=== PATIENT | male | born 1940 | race Caucasian/White ===

== ENCOUNTER 2019-12-10 14:01 | Emergency (ER) | payer BC, OTHER ==
[~2019-12-10] VITALS: Ht 177.8 cm; Wt 88.0 kg
--- NOTE | 2019-12-10 14:10 | NUR ---
BIB ra 79 YEAR OLD MALE c/o near syncopal episode at home. ALERT AND OREINTED X3, BREATHING EVEN AND UNLABORED WITH NO DISTRESS NOTED. SKIN INTACT. WAITING TO BE SEEN BY
[2019-12-10] MEDS ORDERED: ONDANSETRON HCL/PF 4 MG/2 ML VIAL ONE (14:13)
[2019-12-10] MEDS: IV NS 0.9% 500 ML BAG IV ONE (14:15)
[2019-12-10] MEDS: ONDANSETRON HCL/PF 4 MG/2 ML VIAL IVP ONE (14:16)
[2019-12-10 14:26] LABS: BASOPHILS # (AUTO) 0.1 /CMM (0.0-0.2); BASOPHILS % (AUTO) 0.7 % (0.0-2.0); EOSINOPHILS % (AUTO) 0.8 % (0.0-6.0); HEMATOCRIT 37 % (39-51); HEMOGLOBIN 12.5 g/dL (13.5-17.5); LYMPHOCYTES # (AUTO) 3.1 /CMM (0.8-4.8); LYMPHOCYTES % (AUTO) 33.2 % (20.0-44.0); MEAN CORPUSCULAR HGB CONC 34 g/dl (31.0-36.0); MEAN CORPUSCULAR VOLUME 97 fL (80-96); MONOCYTES % (AUTO) 10.3 % (2.0-12.0); NEUTROPHILS # (AUTO) 5.1 /CMM (1.8-8.9); PLATELET COUNT (AUTO) 244 /CMM (150-450); RED BLOOD CELL COUNT(AUTO) 3.83 MIL/uL (4.5-6.0); WHITE BLOOD COUNT (AUTO) 9.3 K/uL (4.3-11.0)
[2019-12-10 14:34] LABS: CALCIUM, SERUM 9.2 mg/dL (8.5-10.1); CARBON DIOXIDE 16 mmol/L (21-32); CHLORIDE 102 mmol/L (98-107); CREATININE 1.6 mg/dL (0.6-1.3); GLUCOSE 123 mg/dL (74-106); POTASSIUM 3.3 mmol/L (3.5-5.1); SODIUM SERUM 140 mmol/L (136-145); UREA NITROGEN, BLOOD 44 mg/dL (7-18)
[2019-12-10 14:39] LABS: ALANINE AMINOTRANSFERASE 16 U/L (12-78); ALBUMIN 3.3 g/dL (3.4-5.0); ALKALINE PHOSPHATASE 36 U/L (46-116); ASPARTATE AMINOTRANSFERASE 17 U/L (15-37); BILIRUBIN,DIRECT 0.1 mg/dL (0.0-0.2); BILIRUBIN,TOTAL 0.6 mg/dL (0.2-1.0); TOTAL PROTEIN, SERUM 6.2 g/dL (6.4-8.2)
[2019-12-10] MEDS ORDERED: SIMV-49 PO (14:39)
[2019-12-10] MEDS ORDERED: LISI40TA4 PO (14:39)
[2019-12-10] MEDS ORDERED: AMLO5TAB9 PO (14:39)
[2019-12-10] MEDS ORDERED: METF-440 PO (14:39)
[2019-12-10] MEDS ORDERED: PIOG45TA5 PO (14:39)
[2019-12-10] MEDS ORDERED: HYDR25TA4 PO (14:39)
--- NOTE | 2019-12-10 15:10 | NUR ---
GOT BED 109
--- NOTE | 2019-12-10 16:21 | NUR ---
PT REMAINS STABLE WITH NO DISTRESS WILL CONTINUE TO MONITOR
--- NOTE | 2019-12-10 16:27 | NUR ---
[employer]ING [employer] TE[employer] FARZANEH [phone] CALLED. PENDING TRANSFER INFORMATION
--- NOTE | 2019-12-10 18:17 | NUR ---
DINNER AT BEDSIDE
--- NOTE | 2019-12-10 19:00 | NUR ---
PADMINI GUAMAN [phone]
--- NOTE | 2019-12-10 19:11 | NUR ---
CALLED ROWENA BACK AND CANCELLED
--- NOTE | 2019-12-10 19:14 | NUR ---
STILL WAITING FOR PT TOGO TO [facility]. ASKED MD TO START THE PROCESS OF HAVING THE PT ADMITTED SINCE IT HAS BEEN NEARLY [address] HILL INFORMED THAT HE HAS SPOKEN WITH TWO DIFFERENT DOCTORS AT [facility], AND THAT THIS PT WILL IN FACT GO TO [facility] AND IT DOES NOT MATTER HOW LONG IT TAKES. PT HAS BEEN PRESENTED. THEREFORE WE WILL WAIT FOR TRANSPORT
--- NOTE | 2019-12-10 21:36 | NUR ---
PT ACCEPTED TO [facility]. BED 216-B. # FOR REPORT [phone]
--- NOTE | 2019-12-10 22:14 | NUR ---
ETA 11PM FOR [facility]
[2019-12-10 23:46] VITALS: BP 111/60
--- NOTE | 2019-12-10 23:52 | NUR ---
REPORT GIVEN TO KIA RAZA FOR [facility] AT THE [facility]. [facility] # 26 @ BEDSIDE FOR PT TRANSPORT, REPORT GIVEN WELL. PT IS STABLE FOR TRANSPORT. PACKET GIVEN TO AMBULANCE STAFF
--- NOTE | 2019-12-11 00:10 | NUR ---
PT LEFT ON [facility] W/ 2 AMBULANCE STAFF AT BEDSIDE.
== END 2019-12-11 00:12 | disposition short-term general hospital (02) ==
LOC: ER 14:17
DX: R55 Syncope and collapse (principal); I11.0 Hypertensive heart disease with heart failure; I50.9 Heart failure, unspecified; E11.9 Type 2 diabetes mellitus without complications; Z79.899 Other long term (current) drug therapy; Z79.84 Long term (current) use of oral hypoglycemic drugs
CPT/HCPCS: 36415; 71045; 80048; 80076; 84484; 85025; 87081; 93005; 96361; 96374; 99285; J2405; J7040